=== PATIENT | female | born 1990 | race Caucasian/White ===

== ENCOUNTER → 2025-06-02 | Outpatient (CLI) | payer OTHER ==
[~2025-06-02] MED LIST: METH10CO3 PO
== END ==
LOC: M RAD 11:13
DX: M79.672 Pain in left foot (principal)

== ENCOUNTER → 2025-07-13 | Outpatient (CLI) | payer MEDICAID, OTHER ==
[2025-07-13 09:56] LABS: PLATELET COUNT, AUTOMATED 393 10^3/uL (150-450)
[2025-07-13 10:27] LABS: ALT/SGPT 26 U/L (7.0-40); AST/SGOT 28 U/L (<34); CALCIUM LEVEL 9.2 MG/DL (8.5-10.1); CARBON DIOXIDE LEVEL 28 MMOL/L (20-31); CHLORIDE LEVEL 104 MMOL/L (98-107); CREATININE FOR GFR 0.89 MG/DL (0.55-1.30); GLOMERULAR FILTRATION RATE 85.6 (>60); POTASSIUM SERUM 4.3 MMOL/L (3.5-5.1); SODIUM LEVEL 139 MMOL/L (136-145)
[2025-07-13 10:33] LABS: HCG, SERUM QUALITATIVE NEGATIVE (NEGATIVE)
[2025-07-13 10:59] LABS: HIV 1&2 SCREEN NEGATIVE (NEGATIVE)
[2025-07-13 11:07] LABS: HEPATITIS C VIRUS ABY INDEX < 0.02 INDEX (<0.8)
[2025-07-13 11:27] LABS: GC DNA AMPLIFICATION NEGATIVE (NEGATIVE)
== END ==
LOC: M LAB 07:57
PROVIDERS: ATTEND Family Medicine
DX: F11.20 Opioid dependence, uncomplicated (principal)
CPT/HCPCS: 36415; 80053; 84703; 85027; 86780; 86803; 87340; 87389; 87810; 87850; G0480

== ENCOUNTER → 2025-07-14 | Outpatient (CLI) | payer MEDICAID | LOC: M LAB 07:27 | PROVIDERS: ATTEND Family Medicine | DX: F11.20 Opioid dependence, uncomplicated (principal) | CPT/HCPCS: 36415; G0480 ==